=== PATIENT | female | born 1970 | race Asian ===

== ENCOUNTER 2018-12-15 14:50 | Emergency (ER) | payer SELFPAY ==
[~2018-12-15] VITALS: Ht 160 cm; Wt 59.1 kg
[2018-12-15 14:51] VITALS: BP 139/82
== END 2018-12-15 15:32 | disposition left against medical advice (07) ==
LOC: EMS 14:51
DX: R51 Headache (principal); R11.2 Nausea with vomiting, unspecified; R42 Dizziness and giddiness; Z53.21 Procedure and treatment not carried out due to patient leaving prior to being seen by health care provider

== ENCOUNTER 2019-09-17 17:39 | Emergency (ER) | payer OTHER ==
[~2019-09-17] VITALS: Ht 160 cm; Wt 55.9 kg
[2019-09-17] MEDS ORDERED: PRED5DRO25 OU (17:45)
[2019-09-17] MEDS ORDERED: PROZ10 PO (17:45)
[2019-09-17] MEDS ORDERED: APIX5TAB PO (17:45)
[2019-09-17] MEDS ORDERED: PROPARACAINE HCL 0.5% 15 ML OPHTHALMIC SOLUTION OU ONE (19:00)
[2019-09-17] MEDS ORDERED: HYDROCODONE/ACETAMINOPHEN 5-325 MG TABLET PO ONE ×2 (19:45→21:30)
[2019-09-17] MEDS ORDERED: ERYTHROMYCIN 0.5% 3.5 GM TUBE OPHTHALMIC OINTMENT OS ONE (21:30)
[2019-09-17 22:38] VITALS: BP 116/75
== END 2019-09-17 22:49 | disposition home or self-care (01) ==
LOC: EMS 17:40
DX: H16.312 Corneal abscess, left eye (principal); G89.18 Other acute postprocedural pain; Z86.73 Personal history of transient ischemic attack (TIA), and cerebral infarction without residual deficits

== ENCOUNTER 2022-08-18 23:12 | Emergency (ER) | payer MEDICARE, OTHER ==
[~2022-08-18] VITALS: Ht 167.6 cm; Wt 81.8 kg
[~2022-08-18 23:12] MED LIST: APIX5TAB PO; FLUO10CA24 PO; PRED5DRO25 OU
[2022-08-18 23:36] LABS: BASOPHILS % (AUTO) 0.7 % (0.0-2.0); HEMOGLOBIN 15.8 g/dL (12.0-16.0); LYMPHOCYTES # (AUTO) 2.4 K/uL (1.0-4.8); MONOCYTES # (AUTO) 0.3 K/uL (0.1-1.0)
[2022-08-18 23:39] LABS: EOSINOPHILS % (AUTO) 0.7 % (1.0-6.0); HEMATOCRIT 47.9 % (36-46); LYMPHOCYTES % (AUTO) 26.5 % (22.0-44.0); MEAN CORPUSCULAR HEMOGLOBIN 30.2 pg (26.0-34.0); MEAN CORPUSCULAR VOLUME 92 fL (80-100); MONOCYTES % (AUTO) 3.5 % (2.0-9.0); NEUTROPHILS # (AUTO) 6.2 K/uL (1.8-7.7); NEUTROPHILS % (AUTO) 68.6 % (40.0-70.0); PLATELET COUNT (AUTO) 156 K/uL (150-450); RED BLOOD CELL COUNT(AUTO) 5.23 MIL/uL (4.00-5.20); RED CELL DISTRIBUTION WIDTH 13.3 % (11.5-14.5)
[2022-08-18 23:46] LABS: CALCIUM, TOTAL 9.3 mg/dL (8.8-10.5); CREATININE 0.99 mg/dL (0.60-1.30); POTASSIUM 3.9 mmol/L (3.5-5.1)
[2022-08-18 23:50] LABS: PROTHROMBIN TIME 10.4 SEC (9.4-11.6)
[2022-08-18 23:53] LABS: ALBUMIN 4.2 g/dL (3.4-5.0); BILIRUBIN,TOTAL 0.4 mg/dL (0.1-1.0); TOTAL PROTEIN, SERUM 7.8 g/dL (6.4-8.2)
[2022-08-19] MEDS ORDERED: LevETIRAcetam 1,000 MG in DEXTROSE 5%-WATER 100 ML IV ONE (00:15)
[2022-08-19] MEDS ORDERED: KETOROLAC TROMETHAMINE 30 MG/ML VIAL IVP ONE (02:30)
[2022-08-19 04:30] VITALS: BP 137/67
== END 2022-08-19 04:32 | disposition home or self-care (01) ==
LOC: EMS 23:12
DX: G40.89 Other seizures (principal); Z98.890 Other specified postprocedural states
CPT/HCPCS: 99285; 70450; 80053; 85025; 85610; 85730; 36415; 72125; 93005; 96374; 96375; 73503; G0480; J0712; J1885; J7060